=== PATIENT | male | born 1935 | race Caucasian/White ===

== ENCOUNTER 2018-01-08 19:10 | Emergency (ER) | payer MEDICARE ==
[~2018-01-08] VITALS: Ht 172.7 cm; Wt 86.6 kg
[~2018-01-08 19:10] MED LIST: ASPIRIN81 M1 PO; FLOMAX0.4 MG PO; ISOSORBIDE MONO30 M1 PO; OXYBUTYNIN CHLOR5 MG PO; PLAVIX75 MG PO; PRAVACHOL40 MG PO; SM GLUCOSAMINE1 EACH PO; [UNRECOGNIZED DRUG - OTHER]
[2018-01-08] MEDS ORDERED: IOPAMIDOL 300MG/ML 100 ML INFUS..BTL IV ONE (21:30)
[2018-01-08 21:51] VITALS: BP 154/71
== END 2018-01-08 21:55 | disposition home or self-care (01) ==
LOC: FSED 19:10
DX: R07.89 Other chest pain (principal); R07.1 Chest pain on breathing; K80.80 Other cholelithiasis without obstruction
CPT/HCPCS: 99283; Q9967

== ENCOUNTER 2019-07-12 17:33 | Emergency (ER) | payer MEDICARE ==
[~2019-07-12] VITALS: Ht 172.7 cm; Wt 79.4 kg
[2019-07-12] MEDS ORDERED: MULTI-VITAMIN1 EACH (18:36)
[2019-07-12] MEDS ORDERED: PROPRANOLOL HCL10 MG PO (18:36)
[2019-07-12] MEDS ORDERED: RANITIDINE HCL150 MG (18:36)
[2019-07-12] MEDS ORDERED: SERTRALINE HCL100 MG PO (18:36)
--- NOTE | 2019-07-12 18:48 | Diagnostic Imaging Report ---
Lumbar Spine Radiographs: 3 views HISTORY: Pain COMPARISON: None available. DISCUSSION: Some of the osseous structures are partially obscured by stool and bowel gas. There are five non-rib bearing lumbar vertebral bodies. The alignment of the spine is within normal limits. T12 vertebral body compression deformity of indeterminate age. Degenerative changes of lumbar spine, most notable at L4-L5 and L5-S1. Vascular calcifications. IMPRESSION: T12 vertebral body compression deformity of indeterminate age. Signed by: Dr. Mike Herron MD on 07/12/2019 6:45 PM
--- NOTE | 2019-07-12 18:50 | Diagnostic Imaging Report ---
PELVIS 1-2 VIEW - HOPD - 1 view HISTORY: Pain COMPARISON: None available. FINDINGS: Bones: No acute displaced fracture. Osseous alignment is within normal limits. Joints: No malalignment. Mild degenerative changes of the hips. 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 Pelvic phleboliths. IMPRESSION: No acute radiographic abnormality. Signed by: Dr. Mike Herron MD on 07/12/2019 6:47 PM
--- NOTE | 2019-07-12 18:52 | Diagnostic Imaging Report ---
HIP 2 VIEW BILATERAL- HOPD - 4 images HISTORY: Pain COMPARISON: None available. FINDINGS: Bones: No acute displaced fracture. Osseous alignment is within normal limits. Joints: No malalignment. Soft tissues: Prostate radiation seeds. Pelvic fullness. IMPRESSION: No acute radiographic abnormality. Signed by: Dr. Mike Herron MD on 07/12/2019 6:48 PM
--- NOTE | 2019-07-12 18:52 | NUR ---
Report to BRIGHT Davey
[2019-07-12] MEDS ORDERED: HYDROCODONE/APAP 5MG-325MG TAB PO ONE ×2 (19:00→21:45)
[2019-07-12] MEDS ORDERED: COLCHICINE 0.6 MG TAB PO SCH (19:30)
[2019-07-12] MEDS ORDERED: HYDROCODONE/APAP 5MG-325MG TAB ONE (21:43)
[2019-07-12 22:01] VITALS: BP 167/78
== END 2019-07-12 22:04 | disposition other institution (70) ==
LOC: FSED 17:33
DX: M54.6 Pain in thoracic spine (principal); S22.080A Wedge compression fracture of T11-T12 vertebra, initial encounter for closed fracture; M54.5 Low back pain; W06.XXXA Fall from bed, initial encounter; Y93.84 Activity, sleeping; Y92.003 Bedroom of unspecified non-institutional (private) residence as the place of occurrence of the external cause; I10 Essential (primary) hypertension; E78.5 Hyperlipidemia, unspecified; K21.9 Gastro-esophageal reflux disease without esophagitis; Z85.46 Personal history of malignant neoplasm of prostate; Z85.828 Personal history of other malignant neoplasm of skin

== ENCOUNTER 2020-08-24 16:11 | Emergency (ER) | payer MEDICARE ==
[~2020-08-24] VITALS: Ht 172.7 cm; Wt 79.4 kg
[~2020-08-24 16:11] MED LIST changes: +MULTI-VITAMIN1 EACH; +PROPRANOLOL HCL10 MG PO; +RANITIDINE HCL150 MG; +SERTRALINE HCL100 MG PO
[2020-08-24] MEDS ORDERED: ONDANSETRON HCL INJ 2MG/ML 2ML 2 MG/ML VIAL IV PRN (17:45)
[2020-08-24] MEDS ORDERED: SODIUM CHLORIDE FLUSH 10 ML SYR INJ PRN (17:45)
[2020-08-24] MEDS ORDERED: ASPIRIN 81 MG CHEW TAB PO ONE (17:45)
[2020-08-24] MEDS ORDERED: BACITRACIN ZINC 0.9GM TP ONE (18:15)
[2020-08-24] MEDS ORDERED: ACETAMINOPHEN 325 MG TAB PO ONE (19:00)
[2020-08-24] MEDS ORDERED: ACETAMINOPHEN 325 MG TAB ONE (19:07)
[2020-08-24] MEDS ORDERED: CEPHALEXIN500 MG PO (19:19)
[2020-08-25] MEDS ORDERED: ASPIRIN 81 MG ENTERIC COATED PO SCH (09:00)
== END 2020-08-24 19:14 | disposition home or self-care (01) ==
LOC: FSED 16:30 → ERHOLD 17:41 → UNDOADMIN 17:41 → FSED 19:14
DX: S00.83XA Contusion of other part of head, initial encounter (principal); S20.219A Contusion of unspecified front wall of thorax, initial encounter; S40.011A Contusion of right shoulder, initial encounter; W01.198A Fall on same level from slipping, tripping and stumbling with subsequent striking against other object, initial encounter; Y93.01 Activity, walking, marching and hiking; Y92.007 Garden or yard of unspecified non-institutional (private) residence as the place of occurrence of the external cause; I10 Essential (primary) hypertension; E78.5 Hyperlipidemia, unspecified; R94.31 Abnormal electrocardiogram [ECG] [EKG]; Z95.5 Presence of coronary angioplasty implant and graft; Z95.1 Presence of aortocoronary bypass graft; Z85.46 Personal history of malignant neoplasm of prostate; Z85.828 Personal history of other malignant neoplasm of skin
CPT/HCPCS: 70450; 70486; 71101; 80053; 81003; 82553; 84484; 85025; 93005; 99284

== ENCOUNTER 2020-09-11 18:40 | Emergency (ER) | payer MEDICARE ==
[~2020-09-11] VITALS: Ht 172.7 cm; Wt 79.4 kg
[~2020-09-11 18:40] MED LIST changes: +CEPHALEXIN500 MG PO
[2020-09-11] MEDS ORDERED: GLUCAGON FOR INJ 1 MG VIAL IV STA (18:49)
[2020-09-11] MEDS ORDERED: GLUCAGON FOR INJ 1 MG VIAL ONE ×2 (19:40→19:42)
== END 2020-09-11 20:18 | disposition home or self-care (01) ==
LOC: FSED 18:46
DX: R09.89 Other specified symptoms and signs involving the circulatory and respiratory systems (principal); K22.2 Esophageal obstruction; T18.120A Food in esophagus causing compression of trachea, initial encounter; I10 Essential (primary) hypertension; I25.10 Atherosclerotic heart disease of native coronary artery without angina pectoris; E78.5 Hyperlipidemia, unspecified; F32.9 Major depressive disorder, single episode, unspecified; Z85.46 Personal history of malignant neoplasm of prostate; Z85.828 Personal history of other malignant neoplasm of skin; Z95.1 Presence of aortocoronary bypass graft; Z95.5 Presence of coronary angioplasty implant and graft
CPT/HCPCS: 99283; J1610

== ENCOUNTER 2021-09-05 14:26 | Inpatient (IN) | payer MEDICARE ==
[~2021-09-05] VITALS: Ht 172.7 cm; Wt 79.4 kg
[2021-09-05] MEDS ORDERED: FAMOTIDINE 20 MG/2 ML VIAL IV STA (17:07)
[2021-09-05] MEDS: Pantoprazole IV 40 MG in SODIUM CHLORIDE 0.9% 50ML 50 ML IV SCH (17:15)
[2021-09-05] MEDS ORDERED: SODIUM CHLORIDE 0.9% 50ML 50 ML ONE (17:48)
[2021-09-05] MEDS ORDERED: IOPAMIDOL 370 MG/ML 200 ML INFUS..BTL INJ ONE (17:48)
[2021-09-05 20:00] VITALS: BP 145/85
[2021-09-05 21:41] VITALS: BP 146/67
[2021-09-05] MEDS ORDERED: MELATONIN3 MG PO (22:40)
[2021-09-05] MEDS ORDERED: ARICEPT5 MG PO (22:40)
[2021-09-06] VITALS (8 sets, daily range): BP systolic 125–149; BP diastolic 56–86
[2021-09-06] MEDS: Pantoprazole IV 40 MG in SODIUM CHLORIDE 0.9% 50ML 50 ML IV SCH ×6 (01:13→23:24)
[2021-09-06] MEDS ORDERED: SODIUM CHLORIDE 0.9% 250ML 250 ML IV ONE (03:45)
[2021-09-06 05:55] LABS: HEMATOCRIT 32.2 % (38.2-49.6); HEMOGLOBIN 9.8 g/dL (14.0-18.0); MEAN CORPUSCULAR HGB CONC 30.4 g/dL (31-35); MEAN CORPUSCULAR VOLUME 88.7 fL (81-99); PLATELET COUNT 243 x10e3/uL (140-360); RED BLOOD COUNT 3.63 x10e6/uL (4.3-5.7); RED CELL DISTRIBUTION WIDTH 13.9 % (11.7-14.4)
[2021-09-06 06:24] LABS: ALBUMIN/GLOBULIN RATIO 1.3 (0.8-2.0); ANION GAP 11.4 mmol/L (8-16); CALCIUM 8.2 mg/dL (8.4-10.2); CREATININE, SERUM 0.89 mg/dL (0.72-1.25); MAGNESIUM 2.1 MG/DL (1.3-2.1); PHOSPHORUS 3.8 MG/DL (2.3-4.7); POTASSIUM 4.4 mmol/L (3.5-5.1)
[2021-09-06 06:46] LABS: THYROID STIMULATING HORMONE 1.855 uIU/mL (0.350-4.940)
[2021-09-06 07:58] LABS: EOSINOPHILS % (MANUAL) 3 % (0-7); LYMPHOCYTES % (MANUAL) 21 % (19-48); MONOCYTES % (MANUAL) 8 % (3.4-9.0); NEUTROPHILS % (MANUAL) 68 % (40-74)
[2021-09-06 07:59] LABS: PLATELET ESTIMATE ADEQUATE; PLATELET MORPHOLOGY COMMENT NORMAL; RBC MORPHOLOGY COMMENT NORMAL
[2021-09-06] MEDS ORDERED: SODIUM CHLORIDE 0.9% 250ML 250 ML ONE (10:59)
[2021-09-06] MEDS: DONEPEZIL HCL 5 MG TAB PO SCH (21:00)
[2021-09-06] MEDS: SERTRALINE HCL 100 MG TAB PO SCH (21:00)
[2021-09-06] MEDS ORDERED: MELATONIN 5 MG TABLET PO PRN (21:00)
[2021-09-06] MEDS ORDERED: BISACODYL 5 MG TAB EC PO ONE (23:30)
[2021-09-07] MEDS ORDERED: BISACODYL 5 MG TAB EC PO ONE ×2 (00:30)
[2021-09-07 00:35] LABS: BASOPHILS % 0.7 % (0.0-1.0); EOSINOPHILS # (AUTO) 0.3 (0.0-0.4); EOSINOPHILS % 4.2 % (0.0-6.0); HEMATOCRIT 33.1 % (38.2-49.6); LYMPHOCYTES # (AUTO) 1.2 (1.0-3.2); LYMPHOCYTES % 20.1 % (18.0-39.1); MEAN CORPUSCULAR HGB CONC 30.2 g/dL (31-35); MEAN CORPUSCULAR VOLUME 89.5 fL (81-99); MONOCYTES # (AUTO) 0.7 (0.2-0.8); MONOCYTES % 11.1 % (4.4-11.3); NEUTROPHILS # (AUTO) 3.8 (2.1-6.9); NEUTROPHILS % 63.7 % (38.7-80.0); PLATELET COUNT 281 x10e3/uL (140-360); RED CELL DISTRIBUTION WIDTH 13.9 % (11.7-14.4)
[2021-09-07 00:45] VITALS: BP 171/68
[2021-09-07] MEDS: ONDANSETRON HCL INJ 2MG/ML 2ML 2 MG/ML VIAL IV PRN (02:03)
[2021-09-07] MEDS: Pantoprazole IV 40 MG in SODIUM CHLORIDE 0.9% 50ML 50 ML IV SCH ×4 (04:21→20:30)
[2021-09-07] MEDS ORDERED: SODIUM CHLORIDE 0.9% 250ML 250 ML ONE (04:27)
[2021-09-07] MEDS ORDERED: CITRATE OF MAGNESIA 300ML BOTTLE PO ONE ×3 (05:00→23:30)
[2021-09-07 05:15] LABS: INR 1.02; PROTHROMBIN TIME 14.2 seconds (11.9-14.5)
[2021-09-07 08:00] VITALS: BP_SYST 141; BP_DIAS 7; BP_DIAS 70
[2021-09-07] MEDS: TAMSULOSIN HCL 0.4 MG CAP PO SCH (09:00)
[2021-09-07 09:18] LABS: BASOPHILS # (AUTO) 0.1 (0.0-0.1); BASOPHILS % 0.7 % (0.0-1.0); EOSINOPHILS # (AUTO) 0.2 (0.0-0.4); HEMATOCRIT 37.2 % (38.2-49.6); HEMOGLOBIN 11.1 g/dL (14.0-18.0); LYMPHOCYTES % 21.6 % (18.0-39.1); MEAN CORPUSCULAR HGB CONC 29.8 g/dL (31-35); MEAN CORPUSCULAR VOLUME 90.5 fL (81-99); MONOCYTES # (AUTO) 0.8 (0.2-0.8); MONOCYTES % 9.3 % (4.4-11.3); NEUTROPHILS % 66.1 % (38.7-80.0); RED BLOOD COUNT 4.11 x10e6/uL (4.3-5.7); RED CELL DISTRIBUTION WIDTH 14.1 % (11.7-14.4)
[2021-09-07 09:29] LABS: PLATELET COUNT 449 x10e3/uL (140-360)
[2021-09-07 09:48] LABS: ALBUMIN 3.7 g/dL (3.5-5.0); ALBUMIN/GLOBULIN RATIO 1.1 (0.8-2.0); ANION GAP 16.1 mmol/L (8-16); CALCIUM 9.2 mg/dL (8.4-10.2); CHOL/HDL RATIO 3.1 (3.9-4.7); CREATININE, SERUM 1.21 mg/dL (0.72-1.25); MAGNESIUM 2.6 MG/DL (1.3-2.1); PHOSPHORUS 4.5 MG/DL (2.3-4.7); POTASSIUM 4.1 mmol/L (3.5-5.1)
[2021-09-07 10:08] LABS: THYROID STIMULATING HORMONE 4.164 uIU/mL (0.350-4.940)
[2021-09-07 12:00] VITALS: BP 129/71
[2021-09-07 16:00] VITALS: BP 145/68
[2021-09-07 16:53] LABS: HEMATOCRIT 33.1 % (38.2-49.6); HEMOGLOBIN 9.9 g/dL (14.0-18.0)
[2021-09-07] MEDS ORDERED: ONDANSETRON HCL INJ 2MG/ML 2ML 2 MG/ML VIAL IV PRN (18:30)
[2021-09-07] MEDS ORDERED: BISACODYL 10 MG SUPP PR ONE ×2 (18:50→21:30)
[2021-09-07 19:30] VITALS: BP 129/54
[2021-09-07] MEDS: SERTRALINE HCL 100 MG TAB PO SCH (21:22)
[2021-09-07] MEDS: SIMVASTATIN 40 MG TAB PO SCH (21:22)
[2021-09-07] MEDS: DONEPEZIL HCL 5 MG TAB PO SCH (21:22)
[2021-09-08] VITALS (8 sets, daily range): BP systolic 115–146; BP diastolic 47–80
[2021-09-08] MEDS: Pantoprazole IV 40 MG in SODIUM CHLORIDE 0.9% 50ML 50 ML IV SCH ×3 (00:15→20:15)
[2021-09-08 06:42] LABS: BASOPHILS % 0.5 % (0.0-1.0); EOSINOPHILS # (AUTO) 0.1 (0.0-0.4); EOSINOPHILS % 1.5 % (0.0-6.0); HEMATOCRIT 33.6 % (38.2-49.6); HEMOGLOBIN 10.1 g/dL (14.0-18.0); LYMPHOCYTES # (AUTO) 0.9 (1.0-3.2); LYMPHOCYTES % 11.1 % (18.0-39.1); MEAN CORPUSCULAR HEMOGLOBIN 26.9 pg (28-32); MEAN CORPUSCULAR HGB CONC 30.1 g/dL (31-35); MEAN CORPUSCULAR VOLUME 89.6 fL (81-99); MONOCYTES # (AUTO) 0.8 (0.2-0.8); MONOCYTES % 9.8 % (4.4-11.3); NEUTROPHILS # (AUTO) 6.3 (2.1-6.9); NEUTROPHILS % 76.9 % (38.7-80.0); PLATELET COUNT 316 x10e3/uL (140-360); RED BLOOD COUNT 3.75 x10e6/uL (4.3-5.7); RED CELL DISTRIBUTION WIDTH 14.3 % (11.7-14.4)
[2021-09-08 07:11] LABS: ANION GAP 13.2 mmol/L (8-16); CALCIUM 8.5 mg/dL (8.4-10.2); CREATININE, SERUM 1.24 mg/dL (0.72-1.25); POTASSIUM 4.2 mmol/L (3.5-5.1)
[2021-09-08] MEDS: TAMSULOSIN HCL 0.4 MG CAP PO SCH (09:00)
[2021-09-08] MEDS ORDERED: CITRATE OF MAGNESIA 300ML BOTTLE PO ONE (11:00)
[2021-09-08] MEDS: ONDANSETRON HCL INJ 2MG/ML 2ML 2 MG/ML VIAL IV PRN (11:14)
[2021-09-08] MEDS ORDERED: POVIDONE IODINE 0.05% 0.05 % ML PO ONE (13:31)
[2021-09-08] MEDS ORDERED: PROPOFOL IV EMULSION 10 MG/ML 20 ML VIAL ONE (13:31)
[2021-09-08] MEDS: SERTRALINE HCL 100 MG TAB PO SCH (21:00)
[2021-09-08] MEDS: SIMVASTATIN 40 MG TAB PO SCH (21:00)
[2021-09-08] MEDS: DONEPEZIL HCL 5 MG TAB PO SCH (22:03)
[2021-09-09] VITALS: BP 127/65
[2021-09-09] MEDS: Pantoprazole IV 40 MG in SODIUM CHLORIDE 0.9% 50ML 50 ML IV SCH ×3 (01:15→11:23)
[2021-09-09 05:28] LABS: BASOPHILS % 0.6 % (0.0-1.0); EOSINOPHILS # (AUTO) 0.2 (0.0-0.4); EOSINOPHILS % 3.3 % (0.0-6.0); HEMATOCRIT 30.4 % (38.2-49.6); HEMOGLOBIN 8.9 g/dL (14.0-18.0); LYMPHOCYTES # (AUTO) 1.3 (1.0-3.2); LYMPHOCYTES % 19.2 % (18.0-39.1); MEAN CORPUSCULAR HEMOGLOBIN 26.4 pg (28-32); MEAN CORPUSCULAR HGB CONC 29.3 g/dL (31-35); MEAN CORPUSCULAR VOLUME 90.2 fL (81-99); MONOCYTES # (AUTO) 0.7 (0.2-0.8); MONOCYTES % 10.2 % (4.4-11.3); NEUTROPHILS # (AUTO) 4.6 (2.1-6.9); NEUTROPHILS % 66.4 % (38.7-80.0); PLATELET COUNT 308 x10e3/uL (140-360); RED BLOOD COUNT 3.37 x10e6/uL (4.3-5.7); RED CELL DISTRIBUTION WIDTH 14.1 % (11.7-14.4)
[2021-09-09 05:32] VITALS: BP 134/53
[2021-09-09 05:57] LABS: ANION GAP 11.3 mmol/L (8-16); CALCIUM 8.1 mg/dL (8.4-10.2); CREATININE, SERUM 1.2 mg/dL (0.72-1.25); POTASSIUM 4.3 mmol/L (3.5-5.1)
[2021-09-09 08:12] VITALS: BP 131/58
[2021-09-09 08:48] VITALS: BP 131/58
[2021-09-09] MEDS: TAMSULOSIN HCL 0.4 MG CAP PO SCH (08:56)
[2021-09-09] MEDS ORDERED: PROTONIX20 MG PO (11:01)
[2021-09-09] MEDS ORDERED: INFLUENZA VIRUS VAC SPLIT INJ 0.5 ML SYR IM ONE (11:15)
[2021-09-09 11:29] VITALS: BP 115/53
[2021-09-09] MEDS ORDERED: POTASSIUM CHLORIDE 20 MEQ TAB CR PO STA (13:25)
== END 2021-09-09 13:10 | disposition home or self-care (01) | DRG 378 ==
LOC: FSED 14:34 → ERHOLD 17:04 → MED/SURG 18:30
PROVIDERS: ADMIT Internal Medicine; ATTEND Internal Medicine
PROC: 30233R1 Transfusion of Nonautologous Platelets into Peripheral Vein, Percutaneous Approach (ICD-10-PCS; 2021-09-06)
PROC: 0DJD8ZZ Inspection of Lower Intestinal Tract, Via Natural or Artificial Opening Endoscopic (ICD-10-PCS; principal; 2021-09-08 15:48)
DX: K57.91 Diverticulosis of intestine, part unspecified, without perforation or abscess with bleeding (principal); D62 Acute posthemorrhagic anemia; N17.9 Acute kidney failure, unspecified; G31.84 Mild cognitive impairment of uncertain or unknown etiology; N40.0 Benign prostatic hyperplasia without lower urinary tract symptoms; F41.9 Anxiety disorder, unspecified; F32.A Depression, unspecified; Z74.09 Other reduced mobility; I25.10 Atherosclerotic heart disease of native coronary artery without angina pectoris; Z95.1 Presence of aortocoronary bypass graft; Z95.5 Presence of coronary angioplasty implant and graft; K57.31 Diverticulosis of large intestine without perforation or abscess with bleeding; K64.8 Other hemorrhoids; Z96.642 Presence of left artificial hip joint; Z85.46 Personal history of malignant neoplasm of prostate; Z20.822 Contact with and (suspected) exposure to COVID-19
CPT/HCPCS: 36415; 45378; 74177; 80048; 80053; 80061; 82553; 83036; 83735; 84100; 84443; 84484; 85007; 85014; 85018; 85025; 85027; 85610; 86850; 86900; 86920; 93005; 94799; 99284; J2405; J7050; P9034; Q9967; U0002

== ENCOUNTER 2022-10-21 20:27 | Emergency (ER) | payer MEDICARE ==
[~2022-10-21] VITALS: Ht 325.1 cm; Wt 74.8 kg
[~2022-10-21 20:27] MED LIST changes: +ARICEPT5 MG PO; +MELATONIN3 MG PO; +PROTONIX20 MG PO
[2022-10-21] MEDS ORDERED: HYDROCODONE/APAP 5MG-325MG TAB PO ONE (21:00)
[2022-10-21] MEDS ORDERED: HYDROCODONE/APAP 5MG-325MG TAB ONE (21:13)
[2022-10-21] MEDS ORDERED: ULTRAM 50MG50 MG PO (22:53)
[2022-10-21] MEDS ORDERED: NAPROXEN375 M1 PO (22:56)
== END 2022-10-21 23:00 | disposition home or self-care (01) ==
LOC: FSED 20:37
DX: M48.54XA Collapsed vertebra, not elsewhere classified, thoracic region, initial encounter for fracture (principal); M51.34 Other intervertebral disc degeneration, thoracic region; M51.36 Other intervertebral disc degeneration, lumbar region; M48.56XA Collapsed vertebra, not elsewhere classified, lumbar region, initial encounter for fracture; I25.10 Atherosclerotic heart disease of native coronary artery without angina pectoris; G89.29 Other chronic pain; Z85.46 Personal history of malignant neoplasm of prostate; Z85.828 Personal history of other malignant neoplasm of skin
CPT/HCPCS: 72128; 72131; 99283